=== PATIENT | female | born 1980 | race Caucasian/White ===

== ENCOUNTER 2018-02-12 20:43 | Emergency (ER) | payer MEDICARE, MEDICAID ==
[2018-02-12 21:03] VITALS: BP 132/81
[2018-02-12] MEDS ORDERED: DIAZEPAM INJ 10 MG/2 ML DISP.SYRIN IM ONE (22:43)
--- NOTE | 2018-02-12 22:54 | ER Document Report ---
ED General - General Chief Complaint: Abscess Stated Complaint: ABSCESS ON BACK Time Seen by Provider: 02/12/18 22:03 Mode of Arrival: Ambulatory Information source: Patient Notes: Patient is a 37-year-old female who presents with chief complaint of mid back pain that started this morning. Patient reports that the pain is located in between the thoracic and lumbar spine and radiates down into her left leg. Patient denies any recent trauma or injury. Patient denies any fevers, denies any IV drug use, denies any recent surgeries and denies any loss of bowel or bladder. - Related Data Allergies/Adverse Reactions: aspirin Allergy (Verified 02/12/18 20:48) Penicillins Allergy (Verified 02/12/18 20:48) Sulfa (Sulfonamide Antibiotics) Allergy (Verified 02/12/18 20:48) Past Medical History - General Information source: Patient - Social History Smoking Status: Current Every Day Smoker Chew tobacco use (# tins/day): No Frequency of alcohol use: None Drug Abuse: None Family History: Reviewed & Not Pertinent Patient has suicidal ideation: No Patient has homicidal ideation: No - Medical History Medical History: Negative Renal/ Medical History: Denies: Hx Peritoneal Dialysis Past Surgical History: Reports: Hx Gynecologic Surgery - ovarian cyst, Hx Hysterectomy, Hx Tonsillectomy - Immunizations Immunizations up to date: Yes Hx Diphtheria, Pertussis, Tetanus Vaccination: Yes Review of Systems - Review of Systems Constitutional: No symptoms reported EENT: No symptoms reported Cardiovascular: No symptoms reported Respiratory: No symptoms reported Gastrointestinal: No symptoms reported Genitourinary: No symptoms reported Female Genitourinary: No symptoms reported Musculoskeletal: See HPI Skin: No symptoms reported Hematologic/Lymphatic: No symptoms reported Neurological/Psychological: No symptoms reported Physical Exam - Vital signs Vitals: Temp Pulse Resp BP Pulse Ox 99.2 F 92 20 132/81 H 99 02/12/18 21:01 02/12/18 21:01 02/12/18 21:01 02/12/18 21:01 02/12/18 21:01 - Notes Notes: PHYSICAL EXAMINATION: GENERAL: Well-appearing, well-nourished and in no acute distress. HEAD: Atraumatic, normocephalic. NECK: Normal range of motion, supple without lymphadenopathy LUNGS: Breath sounds clear to auscultation bilaterally and equal. No wheezes rales or rhonchi. HEART: Regular rate and rhythm without murmurs Musculoskeletal: Normal range of motion, no pitting or edema. No cyanosis. Tenderness to palpation to paraspinous muscles left of spine. NEUROLOGICAL: Cranial nerves grossly intact. Normal speech, normal gait. Normal sensory, motor exams PSYCH: Normal mood, normal affect. SKIN: Warm, Dry, normal turgor, no rashes or lesions noted. Course - Re-evaluation Re-evalutation: Patient was treated with IM Valium, patient reports near complete resolution of her symptoms after administration of medication. Patient wishes to be discharged home as she states that her significant other has worked first thing in the morning. Patient will be discharged with prescription for Flexeril and Toradol. Patient encouraged to follow-up with her primary care provider early next week for a follow-up if she is not improving. - Vital Signs Vital signs: Temp Pulse Resp BP Pulse Ox 99.2 F 92 20 132/81 H 99 02/12/18 21:01 02/12/18 21:01 02/12/18 21:01 02/12/18 21:01 02/12/18 21:01 Discharge - Discharge Clinical Impression: Muscle spasm Condition: Stable Disposition: HOME, SELF-CARE Additional Instructions: Muscle Strain You have strained a muscle -- torn the fibers within the muscle. This often occurs with strenuous exertion, or during an injury that suddenly stretches the muscle. The seriousness of a strain varies. Some strains heal within days, others cause problems for months. X-rays cannot show a muscle strain. X-rays are taken only if symptoms suggest that a fracture could be present. The usual treatment of a muscle strain is rest and ice packs. Sometimes, a sling, splint, or crutches may be necessary to rest the muscle. The muscle can be used again once pain subsides. Severe strains require a special exercise and stretching program to prevent permanent stiffness and disability. Your doctor will advise you if this will be necessary. Call the doctor immediately if pain or swelling becomes severe, or if numbness or discoloration develop. Please take medications as prescribed, moist heat will help reduce the inflammation. Please follow-up with your primary care provider in the next 3-5 days for a recheck. Return to the emergency department if you develop fever, or any able to urinate or have lost control of her bowel movements. Prescriptions: Ketorolac Tromethamine [Toradol 10 mg Tablet] 10 mg PO Q8HP PRN #10 tablet PRN Reason: Cyclobenzaprine HCl [Flexeril 10 mg Tablet] 10 mg PO TIDP PRN #15 tab PRN Reason:
== END 2018-02-12 23:45 | disposition home or self-care (01) ==
LOC: ER 20:43
DX: M62.830 Muscle spasm of back (principal); F17.200 Nicotine dependence, unspecified, uncomplicated; Z88.6 Allergy status to analgesic agent; Z88.0 Allergy status to penicillin; Z88.2 Allergy status to sulfonamides
CPT/HCPCS: 99283; 96372; J3360